=== PATIENT | female | born 1995 | race African-American/Black ===

== ENCOUNTER 2018-12-04 14:19 | Emergency (ER) | payer MEDICAID ==
[~2018-12-04] VITALS: Ht 162.6 cm; Wt 69.1 kg
[2018-12-04] MEDS ORDERED: ACETAMINOPHEN 500 MG TABLET PO ONE (15:15)
[2018-12-04 16:15] LABS: RAPID GROUP A STREP NEGATIVE (NEGATIVE)
[2018-12-04 16:33] LABS: INFLUENZA TYPE A NEGATIVE FOR TYPE A (NEGATIVE)
[2018-12-04 16:34] LABS: INFLUENZA TYPE B NEGATIVE FOR TYPE B (NEGATIVE)
[2018-12-04 18:54] VITALS: BP 122/80
== END 2018-12-04 18:55 | disposition home or self-care (01) ==
LOC: EMS 14:20
DX: J02.9 Acute pharyngitis, unspecified (principal); F12.90 Cannabis use, unspecified, uncomplicated; J02.8 Acute pharyngitis due to other specified organisms; B97.89 Other viral agents as the cause of diseases classified elsewhere
CPT/HCPCS: 87430; 87804